=== PATIENT | male | born 1945 | race Caucasian/White ===

== ENCOUNTER 2022-04-17 01:34 | Emergency (ER) | payer SELFPAY ==
[~2022-04-17] VITALS: Ht 165.1 cm; Wt 80.0 kg
[2022-04-17] MEDS ORDERED: SODIUM CHLORIDE 0.9% 1,000 ML IV ONE (02:15)
[2022-04-17] MEDS ORDERED: AMPICILLIN SOD/SULBACTAM NA 1.5 G in SODIUM CHLORIDE 0.9% 50 ML IV ONE (02:15)
[2022-04-17 03:31] LABS: BASOPHILS % 0.2 % (0.0-2.0); EOSINOPHILS % 1.4 % (0.0-5.0); HEMATOCRIT. 32.8 % (42.0-52.0); LYMPHOCYTES % 11.3 % (20.0-50.0); MEAN CORPUSCULAR HEMOGLOBIN 29.6 pg (28.0-32.0); MEAN CORPUSCULAR VOLUME 88.5 fL (80.0-94.0); MONOCYTES % 11.5 % (2.0-8.0); NEUTROPHILS % 75.6 % (40.0-76.0); PLATELET 171 x1000/uL (130-400); RED BLOOD CELL COUNT 3.71 mill/uL (4.7-6.1); RED CELL DISTRIBUTION WIDTH 12.4 % (11.6-14.6)
[2022-04-17 03:45] LABS: CHLORIDE 98 mEq/L (98-107)
[2022-04-17] MEDS ORDERED: IOHEXOL-300 100 ML BOTTLE ONE (05:10)
[2022-04-17] MEDS ORDERED: MORPHINE SULFATE 4 MG/ML CPJ (NOT FOR IM USE) IV ONE (05:15)
[2022-04-17 05:25] VITALS: BP 134/67
[2022-04-17] MEDS ORDERED: IBUP-2029 MT (05:53)
== END 2022-04-17 07:20 | disposition home or self-care (01) ==
LOC: ER 01:34
DX: R22.1 Localized swelling, mass and lump, neck (principal)
CPT/HCPCS: 36415; 70487; 71045; 80053; 83605; 85025; 87040; 96365; 96375; 99285; J0295; J2270; J7030; Q9967